=== PATIENT | female | born 1955 | race Caucasian/White ===

== ENCOUNTER → 2017-07-01 11:54 | Outpatient (CLI) | payer OTHER, SELFPAY ==
--- NOTE | 2017-07-01 | DI.MRI.S_ITS ---
PROCEDURE: MR CHEST WO/W CON INDICATIONS: PLEXIFORM NEUROFIBROMA TECHNIQUE: Noncontrast coronal T1 spin echo and STIR, sagittal T1 spin echo with fat saturation and STIR, axial T1 spin echo and T2 fast spin echo with fat saturation. After the administration of contrast, axial/sagittal/coronal T1 spin echo with fat saturation through the mid and upper chest optimized for right chest right supraclavicular/right axillary visualization. COMPARISON: [facility], CT, THORAX WITH CONTRAST, 03/13/2016, 14:44. [facility], MR, SHOULDER WITHOUT CONTRAST, 09/15/2016, 18:07. [facility], CT, THORAX WITHOUT CONTRAST, 01/21/2017, 13:52. [facility], MR, CHEST W&WO CONTRAST, 03/26/2017, 13:17. FINDINGS: Image quality: Excellent. Bones: The visualized bone marrow demonstrates normal signal on all sequences. The overlying cortex appears intact. No abnormal intraosseous enhancement. Soft tissues: No new soft tissue masses are visualized. The serpiginous pattern of elevated fluid signal in the soft tissues along the right posterior chest wall musculature at and lateral to the midline has not appreciably worsened with reference to the comparison MR from 03/26/17. This process shows internal enhancement on the fat-suppressed post contrast imaging, but is most easily visualized by the axial and coronal STIR imaging and also has been visible by diffusion weighted imaging end fat-suppressed T2 imaging. The current imaging field of view does not include the full chest extent of coverage as was seen during the March examination. Elsewhere the scanned muscles demonstrate normal overall bulk and internal signal. Subcutaneous tissues elsewhere appear normal as well. No additional abnormal soft tissue enhancement. IMPRESSION: Stable appearance of right posterior chest wall serpiginous intramuscular/intramuscular lesion tracking inferiorly and previously seen to be involving also a portion of the right axilla and right lateral chest wall region (extending to the axial level of the diaphragmatic dome). 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 No new lesion is seen elsewhere. As discussed, the [id number]-[id number] of the current examination is localized more superiorly and does not include the entire chest bilaterally but rather focuses on the area of maximal involvement and provides improved anatomic resolution with reference to the prior study from March of this year. Dictated by: Hernan Nagel M.D. on 07/01/2017 at 15:58 Approved by: Hernan Nagel M.D. on 07/01/2017 at 16:12
[2017-07-01 12:36] LABS: BUN Creatinine Ratio 23.8 (6-22); Estimated Glomerular Filt Rate > 60.0 mL/min (>60)
== END ==
PROVIDERS: PCP Internal Medicine; Visit Provider Neurological Surgery
DX: D36.10 Benign neoplasm of peripheral nerves and autonomic nervous system, unspecified (principal)
CPT/HCPCS: 36415; 71552; 82565; 84520; A9579

== ENCOUNTER → 2018-12-01 14:54 | Outpatient (CLI) | payer OTHER, SELFPAY ==
--- NOTE | 2018-12-01 | DI.CT.S_ITS ---
PROCEDURE: CT CHEST WO CON INDICATIONS: pulmonary nodule TECHNIQUE: Noncontrast 5 mm thick sections acquired from the pulmonary apices to the posterior costophrenic angles. 1 mm lung window, 5 mm thick coronal and sagittal and 7 mm axial MIP reformats were then acquired. For radiation dose reduction, the following was used: automated exposure control, adjustment of mA and/or kV according to patient size. COMPARISON: [facility], CT, THORAX WITHOUT CONTRAST, 01/21/2017, 13:52. [facility], MR, MR CHEST WO/W CON, 07/01/2017, 12:59. FINDINGS: Image quality: Excellent. Lungs and pleura: Previously reported 4 mm right upper lobe pulmonary nodule now measures 6 x 4 mm in size and slightly more dense. This may be in part due to thinner image slice thickness of 1 mm versus 2 mm previously. Additionally, there are small somewhat tree in bud opacities extending distally/peripherally from this nodule. No other pulmonary nodules identified in the remainder of the visualized hemithoraces. No pleural effusions or pneumothorax. Central and peripheral airways are patent and normal in caliber. Mediastinum: Heart size is normal. No pericardial effusion. Scattered atherosclerotic calcifications of the coronary arteries are noted. No mediastinal adenopathy by size criteria. Thoracic aorta and central pulmonary arteries are normal in size. Esophagus is normal in caliber. No hiatal hernia. Bones and chest wall: No suspicious bony lesions. No vertebral body compression fractures. No axillary or supraclavicular adenopathy by size criteria. Thyroid gland is normal in appearance.. Abdomen: Visualized upper abdominal solid organs and bowel loops appear normal in the absence of contrast. Status post cholecystectomy. IMPRESSION: 1. Persistent right upper lobe pulmonary nodule which has demonstrated slight interval increase in size now measuring 6 x 4 mm versus 4 mm previously. This may in part be due to thinner image slice thickness compared to prior study. However, there are several small tree in bud opacities extending peripherally/distally from this nodule, suggesting an inflammatory/infectious process. Recommend followup CT in 3-6 months to document resolution versus stability. 2. No acute cardiopulmonary abnormality is identified in the chest. Dictated by: Vernon Singh M.D. on 12/01/2018 at 18:10 Approved by: Vernon Singh M.D. on 12/01/2018 at 18:18
--- NOTE | 2018-12-01 | DI.MG.S_ITS ---
BILATERAL DIGITAL SCREENING MAMMOGRAM 3D/2D WITH CAD: 12/01/2018 CLINICAL: Routine screening. Comparison is made to exams dated: 01/21/2017 mammogram - [facility], 09/29/2015 mammogram, and 10/03/2014 mammogram - [facility]. There are scattered fibroglandular elements in both breasts. Current study was also evaluated with a Computer Aided Detection (CAD) system. No significant masses, calcifications, or other findings are seen in either breast. There has been no significant interval change. IMPRESSION: NEGATIVE There is no mammographic evidence of malignancy. A 1 year screening mammogram is recommended. This exam was interpreted at Station ID: [id number]. NOTE: For mammograms, a report in lay terms will be sent to the patient. Approximately 15% of breast malignancies will not be visualized mammographically. In the management of a palpable breast mass, a negative mammogram must not discourage biopsy of a clinically suspicious lesion. Electronically Signed By: Yennifer cervantes/geraldo:12/01/2018 16:16:49 copy to: NINI BOATENG letter sent: Normal Exam ACR BI-RADS Category 1: Negative 3341F
== END ==
PROVIDERS: PCP Internal Medicine; Visit Provider Internal Medicine
DX: Z12.31 Encounter for screening mammogram for malignant neoplasm of breast (principal); R91.1 Solitary pulmonary nodule
CPT/HCPCS: 71250; 77063; 77067

== ENCOUNTER → 2019-12-22 09:58 | Outpatient (CLI) | payer BC, SELFPAY ==
--- NOTE | 2019-12-22 | DI.CT.S_ITS ---
PROCEDURE: CT CHEST WO CON INDICATIONS: Solitary pulmonary nodule TECHNIQUE: Noncontrast 5 mm thick sections acquired from the pulmonary apices to the posterior costophrenic angles. 1 mm lung window, 5 mm thick coronal and sagittal and 7 mm axial MIP reformats were then acquired. For radiation dose reduction, the following was used: automated exposure control, adjustment of mA and/or kV according to patient size. COMPARISON: [facility], CT, THORAX WITH CONTRAST, 03/13/2016, 14:44. [facility], CT, CT CHEST WO CON, 12/01/2018, 14:56. FINDINGS: Image quality: Excellent. Lungs and pleura: A 4 mm pulmonary nodule in the posterior segment of the right upper lobe is likely stable compared to the previous study of 2017, more conspicuous with thinner slice technique. It is stable compared to the most recent prior study. There is subtle associated tree-in-bud appearance distal to that nodule. It is consistent with a benign pulmonary nodule. No acute air space opacities. No pleural effusions or pneumothorax. Central and peripheral airways are patent and normal in caliber. Mediastinum: Heart size is normal. No pericardial effusion. Minimal coronary artery calcifications. No mediastinal adenopathy by size criteria. Thoracic aorta and central pulmonary arteries are normal in size. Esophagus is normal in caliber. No hiatal hernia. Bones and chest wall: No suspicious bony lesions. No vertebral body compression fractures. No axillary or supraclavicular adenopathy by size criteria. Thyroid gland is unremarkable. Abdomen: Visualized upper abdominal solid organs and bowel loops appear normal in the absence of contrast. Remote cholecystectomy. IMPRESSION: 1. A 4 mm right upper lobe pulmonary nodule is likely stable dating back to 2017. It is consistent with a benign pulmonary nodule. No further follow-up is suggested. Comment: If this patient is high risk for bronchogenic carcinoma (significant smoking history), would recommend yearly screening lung CT. Dictated by: David Kim M.D. on 12/22/2019 at 10:28 Approved by: David Kim M.D. on 12/22/2019 at 10:35
== END ==
PROVIDERS: PCP Internal Medicine; Referring Provider Internal Medicine; Visit Provider Internal Medicine
DX: R91.1 Solitary pulmonary nodule (principal)
CPT/HCPCS: 71250

== ENCOUNTER → 2020-01-18 11:25 | Outpatient (CLI) | payer BC, SELFPAY ==
--- NOTE | 2020-01-18 | DI.MG.S_ITS ---
BILATERAL DIGITAL SCREENING MAMMOGRAM 3D/2D WITH CAD: 01/18/2020 CLINICAL: Routine screening. Comparison is made to exams dated: 12/01/2018 mammogram, 01/21/2017 mammogram - [facility], 09/29/2015 mammogram, 09/08/2013 mammogram, and 10/03/2014 mammogram - [facility]. There are scattered fibroglandular elements in both breasts. Current study was also evaluated with a Computer Aided Detection (CAD) system. No significant masses, calcifications, or other findings are seen in either breast. There has been no significant interval change. IMPRESSION: NEGATIVE There is no mammographic evidence of malignancy. A 1 year screening mammogram is recommended. This exam was interpreted at Station ID: [id number]. NOTE: For mammograms, a report in lay terms will be sent to the patient. Approximately 15% of breast malignancies will not be visualized mammographically. In the management of a palpable breast mass, a negative mammogram must not discourage biopsy of a clinically suspicious lesion. Electronically Signed By: Vernon herr/geraldo:01/18/2020 12:36:04 letter sent: Normal Exam ACR BI-RADS Category 1: Negative 3341F
== END ==
PROVIDERS: PCP Internal Medicine; Referring Provider Internal Medicine; Visit Provider Internal Medicine
DX: Z12.31 Encounter for screening mammogram for malignant neoplasm of breast (principal)
CPT/HCPCS: 77063; 77067

== ENCOUNTER → 2021-11-22 13:07 | Outpatient (CLI) | payer MEDICARE, OTHER, SELFPAY ==
--- NOTE | 2021-11-22 | DI.MG.S_ITS ---
BILATERAL DIGITAL SCREENING MAMMOGRAM 3D/2D WITH CAD: 11/22/2021 CLINICAL: Routine screening. Comparison is made to exams dated: 01/18/2020 mammogram, 12/01/2018 mammogram, and 01/21/2017 mammogram - [facility]. There are scattered areas of fibroglandular density in both breasts (category b / 25%-50% glandular tissue). Current study was also evaluated with a Computer Aided Detection (CAD) system. No significant masses, calcifications, or other findings are seen in either breast. There has been no significant interval change. IMPRESSION: NEGATIVE There is no mammographic evidence of malignancy. A 1 year screening mammogram is recommended. Based on the Tyrer Cuzick model (a risk assessment model) the patient's lifetime risk is 2.0% and her 10 year risk is 1.0%. According to the ACR, ACS, and NCCN guidelines, an annual breast MRI exam along with mammogram is recommended if the patient's lifetime risk is 20% or greater. This exam was interpreted at Station ID: [id number]. NOTE: For mammograms, a report in lay terms will be sent to the patient. Approximately 15% of breast malignancies will not be visualized mammographically. In the management of a palpable breast mass, a negative mammogram must not discourage biopsy of a clinically suspicious lesion. Electronically Signed By: Heaven kelly/geraldo:11/22/2021 16:30:54 letter sent: Normal Exam ACR BI-RADS Category 1: Negative 3341F
== END ==
PROVIDERS: PCP Internal Medicine; Referring Provider Internal Medicine; Visit Provider Internal Medicine
DX: Z12.31 Encounter for screening mammogram for malignant neoplasm of breast (principal)
CPT/HCPCS: 77063; 77067

== ENCOUNTER → 2023-01-25 15:33 | Outpatient (CLI) | payer MEDICARE, OTHER, SELFPAY ==
--- NOTE | 2023-01-25 15:38 | DI.MRI.S_ITS ---
PROCEDURE: MR LUMBAR SPINE WO CON INDICATIONS: Dorsalgia, unspecified TECHNIQUE: Noncontrast sagittal T1 spin echo and T2 fast echo, sagittal STIR, and T2 fast spin echo through the lumbar spine. In cases with scoliosis, additional coronal T2 fast spin echo may be performed. COMPARISON: None. FINDINGS: Image quality: Excellent. Alignment and Curvature: There is normal bony alignment. Bone Marrow: Marrow is of normal overall signal. No acute vertebral body compression fractures. Spinal Cord: Conus medullaris terminates at the L2 level. Visualized cord demonstrates normal signal and size. Paraspinous Soft Tissues: No paravertebral masses. T12-L1: Disc desiccation. Mild disc height loss. L1-L2: Disc desiccation. Mild disc height loss. Broad-based disc bulge. Ligamentum flavum hypertrophy and facet arthrosis. L2-L3: Disc desiccation. Left facet arthrosis and bilateral facet hypertrophy and ligamentum flavum hypertrophy. Mild left neural foraminal narrowing. L3-L4: Broad-based disc bulge. Ligamentum flavum hypertrophy. Mild facet hypertrophy. Mild bilateral neural foraminal narrowing. L4-L5: Broad-based disc bulge. Bilateral facet hypertrophy and arthrosis. Ligamentum flavum hypertrophy. Moderate spinal canal narrowing. Moderate bilateral neural foraminal narrowing. L5-S1: Broad-based disc bulge. Facet hypertrophy, ligamentum flavum hypertrophy. Severe right and moderate to severe left neural foraminal narrowing. IMPRESSION: Moderate, multilevel degenerative disc disease and facet arthrosis. Of note, there is severe right and moderate to severe left neural foraminal narrowing at L5-S1, and moderate spinal canal narrowing at L4-5. Dictated by: Nigel Segovia M.D. on 01/26/2023 at 11:13 Approved by: Nigel Segovia M.D. on 01/26/2023 at 11:16
== END ==
PROVIDERS: PCP Internal Medicine; Referring Provider Internal Medicine; Visit Provider Internal Medicine
DX: M47.26 Other spondylosis with radiculopathy, lumbar region (principal); M51.16 Intervertebral disc disorders with radiculopathy, lumbar region; M48.061 Spinal stenosis, lumbar region without neurogenic claudication; M51.17 Intervertebral disc disorders with radiculopathy, lumbosacral region; M47.27 Other spondylosis with radiculopathy, lumbosacral region; M48.07 Spinal stenosis, lumbosacral region; G83.10 Monoplegia of lower limb affecting unspecified side; M54.9 Dorsalgia, unspecified
CPT/HCPCS: 72148

== ENCOUNTER → 2023-02-14 13:46 | Outpatient (CLI) | payer MEDICARE, OTHER, SELFPAY ==
--- NOTE | 2023-02-14 | DI.MRI.S_ITS ---
PROCEDURE: MR SHOULDER RT WO CON INDICATIONS: R/O CUFF TEAR TECHNIQUE: Noncontrast oblique coronal T2 fast spin echo with fat saturation, oblique sagittal T1 spin echo and T2 fast spin echo with fat saturation, axial T1 spin echo and T2 fast spin echo with fat saturation through the shoulder. COMPARISON: [facility], MR, CHEST W&WO CONTRAST, 03/26/2017, 13:17. [facility], CT, CT CHEST WO CON, 12/22/2019, 10:03. [facility] [place], CR, XR SHOULDER 2+ VIEWS RIGHT, 02/05/2023, 14:23. FINDINGS: Image quality: Excellent. Rotator cuff: Low-grade partial bursal surface tearing is seen at the distal supraspinatus tendon insertion superimposed on moderate supraspinatus and infraspinatus tendinosis. The teres minor tendon is intact. Subscapularis tendon demonstrates moderate tendinosis and low-grade partial intrasubstance tearing at the superior insertion. Mild edema is seen at the medial aspect of the supraspinatus, infraspinatus, and subscapularis muscles compatible with low-grade sprains. Bones and bursae: No acute trabecular bone injury or fracture. Chronic traction cystic changes are seen at the posterosuperior humeral head. Mild degenerative spurring in the glenoid rim. Tpwm-kf-ofofiouk acromioclavicular joint osteoarthrosis with mild surrounding subchondral edema. A small amount of fluid is seen in the subacromial/subdeltoid bursa. No significant glenohumeral effusion. Capsule and soft tissues: Lobular [id number] signal is partially included in the axilla extending into the supraclavicular region, which is suspicious for a nonspecific lymphovascular malformation although a plexiform neurofibroma is not excluded. Intramuscular lipoma is seen in the included portion of the distal latissimus dorsi muscle. Nondisplaced tearing of the superior labrum. The proximal biceps long head tendon demonstrates mild tendinosis. There is mild partial fatty infiltration of the rotator interval fat. Glenohumeral ligaments are intact. IMPRESSION: 1. Low-grade partial bursal sided tearing of the supraspinatus tendon at the distal insertion superimposed on moderate supraspinatus and infraspinatus tendinosis. 2. Moderate tendinosis and low-grade partial intrasubstance tearing of the subscapularis tendon at the superior insertion. 3. Mild edema within the medial supraspinatus, infraspinatus, subscapularis muscles is suspicious for low-grade strains. 4. Mild proximal biceps long head tendinosis. 5. Chronic appearing nondisplaced tearing of the superior labrum. 6. Ztpt-jx-rjcysxxh acromioclavicular joint osteoarthrosis. 7. Small subacromial/subdeltoid bursal effusion or mild bursitis. 8. 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 Approved by: Osmel Vera M.D. on 02/16/2023 at 13:21
== END ==
LOC: MRI 13:47
PROVIDERS: PCP Internal Medicine; Referring Provider Orthopaedic Surgery; Visit Provider Orthopaedic Surgery
DX: M75.111 Incomplete rotator cuff tear or rupture of right shoulder, not specified as traumatic (principal); M19.011 Primary osteoarthritis, right shoulder; S43.491A Other sprain of right shoulder joint, initial encounter; M79.89 Other specified soft tissue disorders
CPT/HCPCS: 73221

== ENCOUNTER → 2023-02-23 10:01 | Outpatient (CLI) | payer MEDICARE, OTHER, SELFPAY ==
--- NOTE | 2023-02-23 10:04 | DI.RAD.S_ITS ---
PROCEDURE: XR LUMBAR SPINE MIN 4V INDICATIONS: LOW BACK PAIN TECHNIQUE: 5 views of the lumbar spine were acquired, including bilateral oblique views. COMPARISON: None. FINDINGS: Bones: 5 nonrib-bearing vertebrae are present. Transitional anatomy with sacralization of the L5 vertebral body. Grade 1 anterolisthesis of L3 on L4. There is multilevel facet arthropathy, worse at L4-5 and L5-S1. Mild multilevel disc height loss with degenerative endplate changes and spurring is present. This is most pronounced at L4-5 and L5-S1. No vertebral body compression fractures. No suspicious bony lesions. Soft tissues: Overlying bowel gas pattern is normal. No suspicious soft tissue calcifications. Right upper quadrant surgical clips. Oblique images: No pars defects. IMPRESSION: Degenerative changes of the lumbar spine with grade 1 anterolisthesis of L3 on L4. Transitional anatomy with sacralization of L5. Dictated by: Shemar Holland M.D. on 02/23/2023 at 11:47 Approved by: Shemar Holland M.D. on 02/23/2023 at 11:50
--- NOTE | 2023-02-23 12:10 | DI.RAD.S_ITS ---
PROCEDURE: XR THORACIC SPINE 3V INDICATIONS: Thoracic back pain TECHNIQUE: 3 views of the thoracic spine were acquired. COMPARISON: None. FINDINGS: Bones: No fractures or dislocations. No suspicious bony lesions. 12 pairs of ribs are noted, and appear intact where visualized. Lower cervical spondylitic changes also present. Soft tissues: No paravertebral stripe thickening. IMPRESSION: No acute bony abnormality. Multilevel lower cervical and thoracic spondylosis. Dictated by: Vernon Singh M.D. on 02/23/2023 at 16:47 Approved by: Vernon Singh M.D. on 02/23/2023 at 16:48
== END ==
PROVIDERS: PCP Internal Medicine; Referring Provider Anesthesiology; Visit Provider Anesthesiology
DX: M47.812 Spondylosis without myelopathy or radiculopathy, cervical region (principal); M47.814 Spondylosis without myelopathy or radiculopathy, thoracic region; M47.26 Other spondylosis with radiculopathy, lumbar region; M47.27 Other spondylosis with radiculopathy, lumbosacral region; M48.061 Spinal stenosis, lumbar region without neurogenic claudication; M43.16 Spondylolisthesis, lumbar region; M43.27 Fusion of spine, lumbosacral region; M54.50 Low back pain, unspecified; M54.6 Pain in thoracic spine; M79.18 Myalgia, other site; G89.29 Other chronic pain
CPT/HCPCS: 72072; 72110; 99214

== ENCOUNTER 2023-04-01 09:25 | Outpatient (CLI) | payer MEDICARE, OTHER, SELFPAY ==
[2023-04-01] VITALS (8 sets, daily range): BP systolic 134–170; BP diastolic 73–94; PULSE 81–90; RESP 10–18; TEMP 37.1; O2SAT 96–99
--- NOTE | 2023-04-01 09:30 | DI.RAD.S_ITS ---
PROCEDURE: PAIN L INTERLAMINAR/CAUDAL INJ INDICATIONS: RADICULOPATHY COMPARISON: None. FINDINGS: Fluoroscopic spot filming was performed to verify placement of spinal needles at the L5-S1 level(s), as labeled on the films. Appropriate location(s) of the needle tip(s) was confirmed by injection of iodinated contrast. IMPRESSION: Fluoroscopy for AMEE. Dictated by: Heaven Funk M.D. on 04/01/2023 at 16:58 Approved by: Heaven Funk M.D. on 04/01/2023 at 16:58
[2023-04-01] MEDS: MIDAZOLAM 2 MG/2 ML VIAL 1 MG IV (10:00)
[2023-04-01] MEDS: iopamidoL 15 ML VIAL 3 ML INJ (10:03)
[2023-04-01] MEDS: DEXAMETHASONE 10 MG/ML VIAL INJ (10:03)
--- NOTE | 2023-04-01 11:39 | P.PCN_ITS ---
Date/Time/Diagnoses Date of procedure: 04/01/23 Time of procedure: 10:00 Procedure Notes Physician: Vargas Siddiqui Total Fluoroscopy time (seconds): 16 Total sedation minutes: 10 Procedure in detail & Post-procedure care: L5-S1 Interlaminar Epidural Steroid Injection Indications: Jesi is presenting for treatment of lumbar radiculopathy with low back and leg pain. Preoperative diagnosis: Lumbar radiculopathy Postoperative diagnosis: Same Focused Examination: Ax3 Mood and affect are normal Vital Signs: VSS ASA: 2 Consent: Following review of allergies and potential side effects/complications, including, but not necessarily limited to, infection, allergic reaction, local tissue breakdown, stroke, temporary or permanent nerve injury, paralysis, and possible , the patient indicated that they understood and agreed to pro ceed.? An informed consent document was signed by the patient, witnessed by a nurse and placed in the patient's chart.? Additionally, other treatment options including medications and physical therapy were reviewed with the patient. All questions were answered. Site was then marked. Anesthesia: After review of previous anesthetic history and IV conscious sedation, the patient was deemed safe to proceed with today's procedure with IV conscious sedation. IV sedation was accomplished with midazolam 1 mg administered by the RN after order by Dr. Siddiqui. Sedation was titrated to patient comfort during the course of the procedure. Patient remained responsive to all verbal commands. Position: Prone Monitoring: NIBP, Pulse oximetry, 3 lead EKG Needle used: 18 G 3.5? Tuohy Contrast: Isovue 300M Injectate: Dexamethasone 10 mg with 1% lidocaine 2 mL Technique: The skin was prepped with chloraprep and then draped in a sterile fashion. Time out was performed as per protocol. Oxygen applied via NC. Skin and subcutaneous structures of the needle entry site was then infiltrated with 3 mL of lidocaine 1%. Under AP, lateral and contralateral oblique fluoroscopic control, the Tuohy needle was guided into the L5-S1 epidural space. The space was accessed with loss of resistance technique. Isovue 300M was then injected and the spread was consistent with the epidural space. There was no evidence for intravascular or intrathecal uptake. After negative aspiration, the above- mentioned injectate was then slowly administered and the needle withdrawn. The patient expressed no unusual discomfort or paresthesias during the injection. Band-Aids applied to injection sites. EBL: less than 1 ml Complications: None Post Procedure: Patient was taken to the recovery and monitored. The patient was provided a Pain Log to continue to record the patient's response to the target- specific procedure prior to the patient's follow-up visit with the referring physician. Patient was stable upon discharge. Detailed post procedure instructions were provided. Patient was asked to call in the event of worsening pain, fever, weakness, numbness or bladder or bowel incontinence.
== END 2023-04-01 10:34 | disposition home or self-care (01) ==
PROVIDERS: PCP Internal Medicine; Referring Provider Anesthesiology; Visit Provider Anesthesiology
DX: M54.16 Radiculopathy, lumbar region (principal)
CPT/HCPCS: 62323; 99152; J1100; J2250

== ENCOUNTER 2023-06-17 09:19 | Outpatient (CLI) | payer MEDICARE, OTHER, SELFPAY ==
[2023-06-17] VITALS (8 sets, daily range): BP systolic 132–156; BP diastolic 55–76; PULSE 63–75; RESP 13–17; TEMP 36.8; O2SAT 97–100
--- NOTE | 2023-06-17 10:01 | DI.RAD.S_ITS ---
PROCEDURE: PAIN L INTERLAMINAR/CAUDAL INJ INDICATIONS: radiculopathy COMPARISON: [facility], XA, PAIN L INTERLAMINAR/CAUDAL INJ, 04/01/2023, 11:02. FINDINGS: Fluoroscopic spot filming was performed to verify placement of spinal needles at the L5-S1 level(s), as labeled on the films. Appropriate location(s) of the needle tip(s) was confirmed by injection of iodinated contrast. IMPRESSION: Intraoperative guidance provided. Dictated by: Jesus Hernandez M.D. on 06/17/2023 at 12:41 Approved by: Jesus Hernandez M.D. on 06/17/2023 at 12:43
[2023-06-17] MEDS: MIDAZOLAM 2 MG/2 ML VIAL 1 MG IV (10:05)
[2023-06-17] MEDS: methylPREDNISolone acet DEPO 40 MG/ML VIAL INJ (10:08)
[2023-06-17] MEDS: iopamidoL 15 ML VIAL 3 ML INJ (10:09)
--- NOTE | 2023-06-17 12:10 | P.PCN_ITS ---
Date/Time/Diagnoses Date of procedure: 06/17/23 Time of procedure: 10:00 Procedure Notes Physician: Vargas Siddiqui Total Fluoroscopy time (seconds): 12 Total sedation minutes: 10 Procedure in detail & Post-procedure care: L5-S1 Interlaminar Epidural Steroid Injection Indications: Jesi is presenting for treatment of lumbar radiculopathy with low back and leg pain. Preoperative diagnosis: Lumbar radiculopathy Postoperative diagnosis: Same Focused Examination: Ax3 Mood and affect are normal Vital Signs: VSS ASA: 2 Consent: Following review of allergies and potential side effects/complications, including, but not necessarily limited to, infection, allergic reaction, local tissue breakdown, stroke, temporary or permanent nerve injury, paralysis, and possible , the patient indicated that they understood and agreed to pr oceed.? An informed consent document was signed by the patient, witnessed by a nurse and placed in the patient's chart.? Additionally, other treatment options including medications and physical therapy were reviewed with the patient. All questions were answered. Site was then marked. Anesthesia: After review of previous anesthetic history and IV conscious sedation, the patient was deemed safe to proceed with today's procedure with IV conscious sedation. IV sedation was accomplished with midazolam 1 mg administered by the RN after order by Dr. Siddiqui. Sedation was titrated to patient comfort during the course of the procedure. Patient remained responsive to all verbal commands. Position: Prone Monitoring: NIBP, Pulse oximetry, 3 lead EKG Needle used: 18 G 3.5? Tuohy Contrast: Isovue 300M Injectate: Depo-Medrol 40 mg with 1% lidocaine 2 mL Technique: The skin was prepped with chloraprep and then draped in a sterile fashion. Time out was performed as per protocol. Oxygen applied via NC. Skin and subcutaneous structures of the needle entry site was then infiltrated with 3 mL of lidocaine 1%. Under AP, lateral and contralateral oblique fluoroscopic control, the Tuohy needle was guided into the L5-S1 epidural space. The space was accessed with loss of resistance technique. Isovue 300M was then injected and the spread was consistent with the epidural space. There was no evidence for intravascular or intrathecal uptake. After negative aspiration, the above- mentioned injectate was then slowly administered and the needle withdrawn. The patient expressed no unusual discomfort or paresthesias during the injection. Band-Aids applied to injection sites. EBL: less than 1 ml Complications: None Post Procedure: Patient was taken to the recovery and monitored. The patient was provided a Pain Log to continue to record the patient's response to the target- specific procedure prior to the patient's follow-up visit with the referring physician. Patient was stable upon discharge. Detailed post procedure instructions were provided. Patient was asked to call in the event of worsening pain, fever, weakness, numbness or bladder or bowel incontinence.
== END 2023-06-17 10:39 | disposition home or self-care (01) ==
LOC: RAD 09:21
PROVIDERS: PCP Internal Medicine; Referring Provider Anesthesiology; Visit Provider Anesthesiology
DX: M54.16 Radiculopathy, lumbar region (principal)
CPT/HCPCS: 62323; 99152; J1010; J2250

== ENCOUNTER → 2023-12-24 08:53 | Outpatient (CLI) | payer MEDICARE, OTHER, SELFPAY ==
--- NOTE | 2023-12-24 08:55 | DI.MRI.S_ITS ---
PROCEDURE: MR LUMBAR SPINE WO CON INDICATIONS: lumbar radiculopathy TECHNIQUE: Noncontrast sagittal T1 spin echo and T2 fast echo, sagittal STIR, and T2 fast spin echo through the lumbar spine. In cases with scoliosis, additional coronal T2 fast spin echo may be performed. COMPARISON: [facility], MR, MR LUMBAR SPINE WO CON, 01/25/2023, 16:13. [facility], CR, XR LUMBAR SPINE MIN 4V, 02/23/2023, 10:16. FINDINGS: Image quality: This examination is limited by involuntary motion artifact. Alignment and Curvature: There is normal bony alignment. Bone Marrow: Marrow is of normal overall signal. Scattered foci are seen, which are hyperintense on T1-weighted and T2-weighted imaging, which are most consistent with benign vertebral body hemangiomas. No acute vertebral body compression fractures. Spinal Cord: Conus medullaris terminates at the L1 level. Visualized cord demonstrates normal signal and size. Paraspinous Soft Tissues: No paravertebral masses. This patient has transitional lumbar anatomy. For the purposes of this examination, the level with the last pair of ribs is considered to be T12. By this numbering scheme, there is a transitional S1-S2 disc present. This numbering scheme is chosen to remain consistent with the prior 01/25/2023 MRI report. T12-L1: Normal appearance. L1-L2: No significant abnormality is seen. L2-L3: The disc height and disk signal are relatively well-preserved. Mild generalized disc bulge is seen. Mild facet joint hypertrophy is seen. Mild bilateral neural foraminal narrowing is seen. No central canal narrowing is seen. When comparison is made with the prior images, these findings are similar. L3-L4: The disc height and disk signal are relatively well-preserved. Mild to moderate disc bulge is seen, with a mild central disc protrusion. Mild to moderate facet hypertrophy is seen. Mild bilateral neural foraminal narrowing is seen. No significant central canal narrowing is seen. No significant change from the prior. L4-L5: The disc height is well-preserved. Loss of disc signal is seen at this level. Mild generalized disc bulge is seen. There is a superimposed central disc protrusion. Moderate facet joint hypertrophy is seen. Associated hypertrophy of the ligamentum flavum can be seen. Moderate bilateral neural foraminal narrowing is seen. Mild to moderate central canal narrowing is seen. When comparison is made with the prior images, these findings are similar. L5-S1: Moderate loss of disc height is seen. Loss of disc signal is seen. Mild to moderate disc bulge is seen, with a mild central disc protrusion. There is a focal annular fissure seen posteriorly. Mild facet joint hypertrophy is seen. There is moderate bilateral neural foraminal narrowing seen, right worse than left. Mild to moderate central canal narrowing is seen. When comparison is made with the prior images, these findings are similar. S1-S2: A transitional, rudimentary disc is seen. IMPRESSION: Lumbar spine degenerative changes are seen, which are worst at L5-S1. No significant progression is seen compared to the prior. Dictated by: Javed Longo M.D. on 12/24/2023 at 16:02 Approved by: Javed Longo M.D. on 12/24/2023 at 16:08
== END ==
PROVIDERS: PCP Internal Medicine; Referring Provider Orthopaedic Surgery Orthopaedic Surgery of the Spine; Visit Provider Orthopaedic Surgery Orthopaedic Surgery of the Spine
DX: M51.16 Intervertebral disc disorders with radiculopathy, lumbar region (principal); M48.061 Spinal stenosis, lumbar region without neurogenic claudication; M51.17 Intervertebral disc disorders with radiculopathy, lumbosacral region; M48.07 Spinal stenosis, lumbosacral region; M47.26 Other spondylosis with radiculopathy, lumbar region; M47.27 Other spondylosis with radiculopathy, lumbosacral region; M53.3 Sacrococcygeal disorders, not elsewhere classified
CPT/HCPCS: 72148

== ENCOUNTER → 2024-11-26 09:45 | Outpatient (CLI) | payer MEDICARE, OTHER, SELFPAY ==
--- NOTE | 2024-11-26 09:48 | DI.MG.S_ITS ---
MM screening mammo BI: 11/26/2024. BI-RADS: 1 CLINICAL: 68-year old female for bilateral screening mammogram. Tyrer-Cuzick lifetime risk of 2.2%. No personal or first-degree family history of breast cancer. PRIOR EXAMS 11/22/2021, 01/18/2020, 12/01/2018, 01/21/2017. MAMMOGRAPHY TECHNIQUE: 2D and 3D (tomosynthesis) digital mammographic views obtained, with additional images as needed for full coverage. Current study was also evaluated with a Computer Aided Detection (CAD) system. DENSITY B. There are scattered areas of fibroglandular density. MAMMOGRAPHY FINDINGS Bilateral: No suspicious mass, asymmetry, microcalcification, or other abnormality seen. IMPRESSION: * No evidence of malignancy. RECOMMENDATIONS Bilateral * Annual screening mammography. OVERALL ASSESSMENT CATEGORY BI-RADS-1: Negative. The [employer] recommends annual screening mammography beginning at age 40 for women with average risk of breast cancer. ELECTRONICALLY SIGNED: Vernon Singh M.D. on 11/28/2024 at 08:18:02 AM PT Interpreting Station ID: [id number]
== END ==
LOC: MAMMO 09:47
PROVIDERS: PCP Nurse Practitioner Gerontology; Referring Provider Nurse Practitioner Gerontology; Visit Provider Nurse Practitioner Gerontology
DX: Z12.31 Encounter for screening mammogram for malignant neoplasm of breast (principal)
CPT/HCPCS: 77063; 77067